=== PATIENT | female | born 1990 | race Caucasian/White ===

== ENCOUNTER 2024-08-23 02:54 | Emergency (ER) | payer MEDICAID, SELFPAY ==
[2024-08-23 02:54] VITALS: BMI 22.3
[2024-08-23 03:02] VITALS: BP 114/80; PULSE 100; RESP 16; TEMP 36.6; O2SAT 100
--- NOTE | 2024-08-23 03:07 | EDNOTE_ITS ---
ED Skin Abcess FB-RME/HPI General Chief complaint: Skin/Abscess/Foreign Body Stated complaint: POSS SPIDER BITE ON RT ARM PIT Time Seen by Provider: 08/23/24 03:05 Arrival date/time: 08/23/24 02:54 33 year old female present to emergency room with c/o of right armpitt abscess for 3 days. update with tetanus. LOCATION: arm pit SEVERITY: Symptoms are described as being severe with limitations on activities of daily living QUALITY: Symptoms are described as being dull or achy CONTEXT: The patient is unable to identify any inciting events. DURATION/TIMING: The symptoms started approximately 3 day ago and have been constant this then, and have been progressive getting worse. ASSOCIATED SYMPTOMS: The patient is unable to identify any other associated symptoms. MODIFYING FACTORS: The patient is unable to identify any alleviating or aggravating symptoms. PERTINENT ROS: denies IVDU, states no immunocompromising condition, denies any penetrating trauma, no fever, no unexplained nausea or vomiting, no headache, no chest pain REVIEW OF SYSTEMS: See History of Present Illness - with the exception of those mentioned in the history of present illness, all other systems reviewed and reported as negative GENERAL: In general the patient is awake, interactive, in an emergency department gurney. HEAD/EYES/EARS/NOSE/THROAT: normo-cephalic, atraumatic, mucus membranes are moist, anicteric, palpebral conjunctiva is pink, trachea is midline. NEUROLOGICAL: cranio-facial features are symmetric, moves all four extremities equally without obvious limitations or weakness. EXTREMITY: no tenderness to palpation over the long bones or large joints of the bilateral upper and lower extremities, no joint swelling, no joint erythema, no signs of trauma, no unilateral leg swelling and no peripheral edema. SKIN: right axile abscess + drainage noted. + tenderness. no red streaking warm, dry, well-perfused, no jaundice, no telangiectasias or petechia. PSYCH: calm, cooperative, no evidence of psychosis or agitation Related Data Previous Rx's ?Medication ?Instructions ?Recorded clindamycin HCl 150 mg capsule 450 mg (3 x 150 mg) PO Q8H 10 days 08/23/24 (Cleocin HCl) #90 caps ibuprofen 800 mg tablet (IBU) 800 mg PO TID PRN fever or pain 08/23/24 #30 tabs Allergies Allergy/AdvReac Type Severity Reaction Status Date / Time benzocaine Allergy Severe THROAT Verified 08/02/21 23:27 CLOSES cetylpyridinium chloride Allergy Severe THROAT Verified 08/02/21 23:27 CLOSES menthol Allergy Severe THROAT Verified 08/02/21 23:27 CLOSES Penicillins Allergy Severe UNKNOWN Verified 08/02/21 23:27 Pertussis Vaccines Allergy Severe Swelling Verified 08/02/21 23:27 latex Allergy Intermediate RASH Verified 08/02/21 23:27 Course Course Course Narrative: Nonseptic in appearance. Low c/f osteomyelitis or DVT. No immune compromise, bullae, pain out of proportion, or rapid progression c/f necrotizing fasciitis. ED Intervention: oral clindamycin 450mg tid for 10 days. IBU 800mg first dose given, decline I/d and will return if sx worsen Rx: clindmaycin 450mg tid for 10 days Disposition: At this point, patient is stable for discharge, advised to follow up with primary care physician in 48 hours. Quality Measures none Orders Category Date Time Status Clindamycin [Cleocin] Med 08/23/24 03:05 Discontinued 450 mg PO X1 ONE Ibuprofen Tab [Motrin Tab] Med 08/23/24 03:05 Discontinued 800 mg PO X1 ONE traMADol HCL [Ultram] Med 08/23/24 03:05 Discontinued 50 mg PO X1 ONE Vital Signs Vital signs: Vital Signs Temperature 97.9 F 08/23/24 03:02 Pulse Rate 100 08/23/24 03:02 Respiratory Rate 16 08/23/24 03:02 Blood Pressure 114/80 08/23/24 03:02 Pulse Oximetry (%) 100 08/23/24 03:02 Oxygen Delivery Method Room Air 08/23/24 03:02 Skin / Abscess / Foreign Body Patient data External records reviewed:: None Clinical information provided by:: patient Social determinants that could affect healthcare access:: none Patient has the following chronic illnesses:: none How is presenting disease/condition affected by chronic disease/condition?: no chronic disease Evaluation data The following diagnostics were reviewed and interpreted by me:: other (specify) (none ) Lab and/or radiology exams considered but not ordered:: none Interpretation Summary: none Medications / Prescriptions Medications or Prescriptions considered but not ordered:: none Medication administrations:: Medication Administration History Discontinued Medications Clindamycin HCl (Clindamycin 150 Mg Capsule) 450 mg PO X1 ONE Stop: 08/23/24 03:06 Ibuprofen (Ibuprofen Tab 400 Mg Tablet) 800 mg PO X1 ONE Stop: 08/23/24 03:06 Tramadol HCl (Tramadol Hcl 50 Mg Tablet) 50 mg PO X1 ONE Stop: 08/23/24 03:06 as state above Consultations Consultation(s) initiated? (list below): No Diagnosis Skin/Abscess Differential Diagnosis: abscess of skin or subcutaneous tissue, cellulitis, insect bites and contact dermatitis Most likely diagnosis given after review of the tests above:: abscess Admission Indicated Admission indicated?: not indicated Admission Request Was there a request for admission?: No Disposition Plan Disposition Plan: Discharge Discharge Attestation Discharge Attestation: The patient and all family members were given an opportunity to ask questions and understood the discharge instructions. Discharge instructions specifically effects, indications for sooner follow up or return to the emergency department, and the expected course of current diagnosis. Patient condition: Stable Discharge Plan Plan Patient Disposition: HOME (Self Care) Health Concerns: Follow with PMD as directed Take tylenol or motrin as need Return to ED if sx worsen Prescriptions/Referrals Prescriptions/Med Rec: New clindamycin HCl [Cleocin HCl] 150 mg capsule 450 mg PO Q8H 10 Days Qty: 90 0RF ibuprofen [IBU] 800 mg tablet 800 mg PO TID PRN (Reason: fever or pain) Qty: 30 0RF Referrals: Temporary Provider,ED [Primary Care Provider] - In 1 week Problem List Clinical Impression: Abscess Patient/Caregiver Discharge Instructions Education Materials: ED Abscess Antibiotic ... Print Language: [place] Stand Alone Forms: Deisy Award Info., Patient Portal Info Letter
[2024-08-23] MEDS: traMADol HCL 50 MG TABLET PO (03:12)
[2024-08-23] MEDS: IBUPROFEN TAB 400 MG TABLET 800 MG PO (03:13)
[2024-08-23] MEDS: CLINDAMYCIN 150 MG CAPSULE 450 MG PO (03:14)
== END 2024-08-23 03:24 | disposition home or self-care (01) ==
LOC: SERX 03:12
PROVIDERS: Emergency Provider Emergency Medicine
DX: L02.413 Cutaneous abscess of right upper limb (principal)
CPT/HCPCS: 99282; A9270